=== PATIENT | female | born 1970 | race Caucasian/White ===

== ENCOUNTER 2016-09-11 09:31 | Emergency (ER) | payer OTHER ==
--- NOTE | 2016-09-11 09:48 | ERNOTE ---
Chest Pain/Cardiac HPI Date of Service: 09/11/16 Chief Complaint: Palpitations Time Seen by Provider: 09/11/16 09:46 Source: patient Exam Limitations: no limitations Immunizations: IMMUNIZATION HX Immunizations Up to Date Yes History of Influenza Vaccine Yes Allergies/Adverse Reactions: Allergies promethazine [From Phenergan] Adverse Reaction (Verified 09/11/16 09:41) Other saying funny things. Home Medications: HOME MEDICATIONS LORazepam [Ativan] 1 mg PO HS #10 tablet 09/11/16 [Last Taken Unknown] Narrative: Patient comes due to palpitations, chest pain, feeling without energy, and general weakness. Patient has been crying and feeling anxious. Patient at the moment denies any suicidal/homicidal ideation or intent. Timing: intermittent Severity/Quality: mild Location: central Chest Pain Radiation: no radiation Activities at Onset: none Modifying Factors - Improves: Present: nothing Modifying Factors - Worsens: Present: nothing Aspirin Treatment Today: no aspirin today Associated Symptoms: Present: dizziness - meaning sensation of weakness, shortness of breath - with tingling sensation on both hands, palpitations, nausea, weakness - generalized. Absent: headache, syncope, cough, heartburn, vomiting, abdominal pain, back pain, swelling/lump in chest Prior Chest Pain/Cardiac Workup: Denies: prior chest pain Prior Treatment: Denies: recently seen Review of Systems - Review of Systems Constitutional: Present: weakness, fatigue, malaise. Absent: fever, chills EYE: Present: no symptoms reported ENT: Present: no symptoms reported Respiratory: Present: shortness of breath. Absent: cough, orthopnea, wheezing Cardiology: Present: chest pain, palpitations. Absent: syncope, edema, claudication Gastrointestinal/Abdominal: Present: nausea. Absent: vomiting, diarrhea, abdominal pain Genitourinary: Present: no symptoms reported Musculoskeletal: Present: no symptoms reported Skin: Present: no symptoms reported Neurological: Present: no symptoms reported Endocrine: Present: no symptoms reported Hematologic/Lymphatic: Present: no symptoms reported Psych: Present: no symptoms reported All Other Systems: All systems neg except as marked - Patient's Past Medical History Patient History - Medical: No pertinent hx Patient History - Cardiac/Respiratory: No pertinent hx Patient History - Cancer: No Hx of Cancer Patient History - Surgical Procedures: Patient History - Other: None - Social History Smoking Status: Never smoker Have you smoked in the past 12 months: No - Immunizations Immunizations Up to Date: Yes History of Influenza Vaccine: Yes Physical Exam - Physical Exam General Appearance: Present: wd/wn, alert, no apparent distress Eye Exam: Normal inspection: bilateral, PERRL: bilateral, EOMI: bilateral Ears, Nose, Throat: Present: normal ENT inspection, normal pharynx. Absent: dry mucous membranes Neck: Present: normal inspection, nontender Respiratory: Present: no respiratory distress, normal breath sounds, no accessory muscle use, chest nontender, lungs clear Cardiovascular/Chest: Present: regular rate, rhythm, normal peripheral pulses, systolic murmur - with mid systolic click and a grade III/. Absent: JVD Gastrointestinal/Abdominal: Present: normal bowel sounds, nontender, nondistended, soft, no organomegaly Rectal Exam: Present: nontender, normal rectal tone Back Exam: Present: normal inspection, normal range of motion, no CVA tenderness , no vertebral tenderness Extremity Exam: Present: normal inspection, normal range of motion, no edema Neurological Exam: Present: alert, oriented, normal mood/affect, no motor/ sensory deficits, other - seem anxious Skin Exam: Present: normal color, warm/dry Lymphatic Exam: Present: no adenopathy ED Progress - Date and Time Seen: Date and Time: 09/11/16 10:35 Patient with no chest pain, no distress, normal VS, negative Trop and EKG, and TOSHIA Score of 0. Patient at the moment is a low probability for ACS. Patient will need to follow up with PCP. Patient will be given Tx for anxiety. Patient with possible Mitral Valve Prolapse that could cause some palpitations. Patient will be discharge home. - Results and Orders Patient's Lab Results:: I have reviewed the patient's lab results. Results and Orders: CBC: Normal CMP: Normal THS: Normal Trop: Negative - Vital Signs Patient's Vital Signs:: I have reviewed the patient's vital signs. Vital Signs: Vital Signs 09/11/16 09/11/16 09:36 09:42 Temperature 37.4 C Pulse Rate 77 74 Respiratory 12 Rate Blood Pressure 140/66 O2 Sat by Pulse 100 Oximetry - EKG EKG: NSR EKG read: Interp. by me EKG Comments: HR: 70, No ST Elevation - X-Ray X-Ray #1 X-Ray: chest X-ray Comments: No pathology reported by Radiologist - Progress/Reassessment Chief Complaint: Palpitations Progress:: Improved - Transfer of Care Expected Disposition: Discharge Plan - Plan Plan: Patient is to follow up with her PCP Departure - Departure Clinical Impression: Palpitations, Anxiety Chest pain Qualifiers: Chest pain type: unspecified Qualified Code(s): R07.9 - Chest pain, unspecified Disposition: Home self-care Condition: Stable Instructions: Palpitations, [id number], Panic Attacks, [id number], Mitral Valve Prolapse, Nonspecific Chest Pain, Oook-no-Mfig Prescriptions: LORazepam [Ativan] 1 mg PO HS #10 tablet
--- OUTSIDE RECORDS SUMMARY | 2016-09-11 10:00 | XMS REPORT | Continuity of Care Document ---
:1970 Author Organization [facility] ([facility]) Address [address] [place] [address] Phone [phone] Care Team Providers Name Role Phone Unavailable Primary Care Provider Unavailable Source Comments This disclosure is being made pursuant to the Care Everywhere program, applicable federal and state laws, and may not contain all informaitonavailable regarding this patient.[facility] ([facility]) Active Allergies and Adverse Reactions Not on File Current Medications Not on file Active Problems Not on file Social History Tobacco Use Types Packs/Day Years Used Date Never Assessed Last Filed Vital Signs Vital Sign Reading Time Taken Blood Pressure - - Pulse - - Temperature - - Respiratory Rate - - Height - - Weight 78.3 kg (172 lb 9.9 oz) 05/25/2001 8:00 AM [employer] Body Mass Index - - Oxygen Saturation - - Plan of Care Health Maintenance Due Date Last Done Comments Hepatitis B Vaccine (1 of 3 - Primary Series) 1970 Tdap Vaccine 1981 Lipid Disorder Screening 1988 MMR Vaccine 1988 Td Vaccine 1988 Cervical Cancer Screening 2000 Mammogram 2010 Influenza Vaccine: Seasonal (#1) 12/23/2015 Results from Last 3 Months Not on file
[2016-09-11 10:08] LABS: Hematocrit 38.2 % (37.0-47.0); Hemoglobin 13.2 gm/dL (12.5-16.0); Mean Cell Volume 93.4 fl (78-100); Mean Corpuscular Hemoglobin 32.3 pg (27-31); Mean Corpuscular Hgb Conc 34.6 g/dl (32-36); Mean Platelet Volume 9.7 fl (6.0-9.5); Neutrophil # 4.9 K/mm3 (1.3-6.0); Neutrophil % 72.8 % (42-75.0); Platelet Count 126 K/mm3 (150-450); Red Blood Count 4.09 M/mm3 (4.2-5.4); Red Cell Distribution Width 12.2 % (11.5-14.0); White Blood Count 6.7 K/mm3 (4.0-10.5)
[2016-09-11 10:18] LABS: Prothrombin Time (Patient) 10.5 Seconds (9.4-11.4)
[2016-09-11 10:20] LABS: INR 1.01 INR (0.90-1.10); Partial Thrombolplastin Time 26.5 Seconds (24-32)
[2016-09-11 10:26] VITALS: BP 123/60
[2016-09-11 10:27] LABS: Troponin I Less than 0.017 ng/ml (0.00-0.10)
[2016-09-11 10:31] LABS: ALT 18 U/L (19-67); AST 15 U/L (0-48); Albumin * 3.9 gm/dl (3.4-5.0); Alkaline Phosphatase * 34 U/L (50-170); Anion Gap 14.3 mmol/L (6.8-13.8); BUN/Creatinine Ratio 19.3 (9.0-21.6); Bilirubin, Total 0.5 mg/dL (0.0-1.1); Blood Urea Nitrogen 16 mg/dL (3-23); Ca. Corrected For Albumin 8.9 mg/dL (8.4-10.2); Calcium * 9.1 mg/dL (7.9-10.9); Carbon Dioxide 24.9 mmol/L (24-32.6); Chloride 104 mmol/L (97-106); Glucose * 125 mg/dL (70-110); Potassium 4.2 mmol/L (3.4-4.6); Sodium 139 mmol/L (132-142); TSH * 1.062 uIU/mL (0.358-3.74); Total Protein 6.9 gm/dL (6.2-8.2)
== END 2016-09-11 10:53 | disposition home or self-care (01) ==
LOC: ER 09:31
DX: F41.9 Anxiety disorder, unspecified (principal); R00.2 Palpitations; R07.9 Chest pain, unspecified